=== PATIENT | female | born 1980 | race Caucasian/White ===

== ENCOUNTER 2017-07-18 11:45 | Emergency (ER) | payer BC ==
[2017-07-18 11:50] VITALS: TEMP 98.5; BMI 31.1
--- NOTE | 2017-07-18 11:55 | PDOC ---
History of Present Illness - General Stated Complaint: TINGLING TO LEFT FACE, LEFT SIDE Time Seen by Provider: 07/18/17 11:55 - History of Present Illness Initial Comments: 07/18/17 11:55 Ms. Jarad Adams is a 36 yo female w/ pmh of Guillan [place] (resolved), Asthma , Nephrolithiasis, left pelvic pain with suspected hernia, and hyperthyroidism who presents for evaluation of left sided facial tingling and blue discoloration of her fingers bilaterally since 09 this morning. She called her PCP (Dr. Davies) and was told to present for evaluation. The patient denies chest pain, shortness of breath, headache and dizziness. Denies fever, chills, nausea, vomit, diarrhea and constipation. Denies dysuria, frequency, urgency and hematuria. Allergies: Nitrofurantoin Past History - Past Medical History Allergies/Adverse Reactions: Allergies Allergy/AdvReac Type Severity Reaction Status Date / Time nitrofurantoin AdvReac arm pain Verified 07/18/17 11:47 [From Macrobid] nitrofurantoin AdvReac arm pain Verified 07/18/17 11:47 macrocrystalline [From Macrobid] Home Medications: Ambulatory Orders Albuterol Sulfate Inhaler - [Ventolin Hfa Inhaler -] 1 - 2 inh PO QID PRN Cetirizine HCl/Pseudoephedrine [Zyrtec-D Tablet] 1 each PO DAILY 07/18/17 Asthma: Yes COPD: No Disorders: Yes (frequent UTI) Kidney Stones: Yes Thyroid Disease: Yes - Immunization History Immunization Up to Date: Yes - Suicide/Smoking/Psychosocial Hx Smoking History: Never smoked Have you smoked in the past 12 months: No Hx Alcohol Use: (occasional) Drug/Substance Use Hx: No Substance Use Type: None Review of Systems - Review of Systems Comments:: 07/18/17 12:02 GENERAL/CONSTITUTIONAL: No fever or chills. No weakness. HEAD, EYES, EARS, NOSE AND THROAT: No change in vision. No ear pain or discharge. No sore throat. CARDIOVASCULAR: No chest pain or shortness of breath RESPIRATORY: No cough, wheezing, or hemoptysis. GASTROINTESTINAL: No nausea, vomiting, diarrhea or constipation. GENITOURINARY: No dysuria, frequency, or change in urination. MUSCULOSKELETAL: No joint or muscle swelling or pain. No neck or back pain. SKIN: No rash NEUROLOGIC: No headache, vertigo, loss of consciousness, or change in strength/ sensation. ENDOCRINE: No increased thirst. No abnormal weight change HEMATOLOGIC/LYMPHATIC: No anemia, easy bleeding, or history of blood clots. ALLERGIC/IMMUNOLOGIC: No hives or skin allergy. *Physical Exam - Vital Signs Last Vital Signs Temp Pulse Resp BP Pulse Ox 98.5 F 87 18 138/101 100 07/18/17 11:45 07/18/17 11:45 07/18/17 11:45 07/18/17 11:45 07/18/17 11:45 - Physical Exam Comments: 07/18/17 12:02 GENERAL: Awake, alert, and fully oriented, in no acute distress HEAD: No signs of trauma, normocephalic, atraumatic EYES: PERRLA, EOMI, sclera anicteric, conjunctiva clear ENT: Auricles normal inspection, hearing grossly normal, nares patent, oropharynx clear without exudates. Moist mucosa NECK: Normal ROM, supple, no lymphadenopathy, JVD, or masses LUNGS: No distress, speaks full sentences, clear to auscultation bilaterally HEART: Regular rate and rhythm, normal S1 and S2, no murmurs, rubs or gallops, peripheral pulses normal and equal bilaterally. ABDOMEN: +LLQ TTP at suspected hernia site (chronic). Soft, nontender, normoactive bowel sounds. No guarding, no rebound. No masses EXTREMITIES: +Fingertips blue and cold bilaterally. Normal range of motion, no edema. No clubbing or cyanosis. NEUROLOGICAL: Cranial nerves II through XII grossly intact. Normal speech, normal gait, no focal sensorimotor deficits SKIN: Warm, Dry, normal turgor, no rashes or lesions noted. ED Treatment Course - LABORATORY CBC & Chemistry Diagram: 07/18/17 12:00 07/18/17 12:00 Medical Decision Making - Medical Decision Making 07/18/17 14:07 Ms. Jarad Adams is a 36 yo female w/ presents for evaluation on advice of PCP after onset of discolation of fingertips with facial tingling as described. Stroke protocol started due to concerning history. Head CT negative for acute process, labs grossly wnl as below. NIHSS completely negative. No concern for CVA or other acute process at this time. Discussed patient with PCP who would like ESR added and patient sent outpatient to Dr. Hilaria Cruz at [facility] for rheumatological workup. Discussed this with patient who verbalized agreement and understanding and will comply. Discharging to home. Laboratory Results - last 24 hr 07/18/17 07/18/17 07/18/17 12:00 12:00 12:00 WBC 12.8 H D RBC 4.77 Hgb 14.2 Hct 41.4 MCV 86.9 MCH 29.8 MCHC 34.3 RDW 13.8 Plt Count 225 MPV 10.5 Neutrophils % 80.9 Lymphocytes % 14.9 Monocytes % 3.7 L Eosinophils % 0.3 Basophils % 0.2 PT with INR 12.5 INR 1.12 Sodium 138 Potassium 3.8 Chloride 100 Carbon Dioxide 31 H Anion Gap 7 L BUN 11 D Creatinine < 0.8 D Creat Clearance w eGFR > 60 Random Glucose 103 Calcium 9.2 Total Bilirubin 0.6 AST 22 D ALT 17 Alkaline Phosphatase 63 Creatine Kinase Troponin I Total Protein 7.3 Albumin 4.2 Triglycerides 156 Cholesterol 176 Total LDL Cholesterol 90 HDL Cholesterol 55 Urine Color Urine Appearance Urine pH Ur Specific [place] Urine Protein Urine Glucose (UA) Urine Ketones Urine Blood Urine Nitrite Urine Bilirubin Urine Urobilinogen Ur Leukocyte Esterase Urine HCG, Qual 07/18/17 07/18/17 07/18/17 12:00 12:05 12:06 WBC RBC Hgb Hct MCV MCH MCHC RDW Plt Count MPV Neutrophils % Lymphocytes % Monocytes % Eosinophils % Basophils % PT with INR INR Sodium Potassium Chloride Carbon Dioxide Anion Gap BUN Creatinine Creat Clearance w eGFR Random Glucose Calcium Total Bilirubin AST ALT Alkaline Phosphatase Creatine Kinase Troponin I < 0.03 Total Protein Albumin Triglycerides Cholesterol Total LDL Cholesterol HDL Cholesterol Urine Color [place] Urine Appearance Clear Urine pH 6.5 Ur Specific [place] 1.010 Urine Protein Negative Urine Glucose (UA) Negative Urine Ketones Negative Urine Blood Negative Urine Nitrite Negative Urine Bilirubin Negative Urine Urobilinogen 0.2 Ur Leukocyte Esterase Negative Urine HCG, Qual Negative 07/18/17 12:10 WBC RBC Hgb Hct MCV MCH MCHC RDW Plt Count MPV Neutrophils % Lymphocytes % Monocytes % Eosinophils % Basophils % PT with INR INR Sodium Potassium Chloride Carbon Dioxide Anion Gap BUN Creatinine Creat Clearance w eGFR Random Glucose Calcium Total Bilirubin AST ALT Alkaline Phosphatase Creatine Kinase 64 Troponin I Total Protein Albumin Triglycerides Cholesterol Total LDL Cholesterol HDL Cholesterol Urine Color Urine Appearance Urine pH Ur Specific [place] Urine Protein Urine Glucose (UA) Urine Ketones Urine Blood Urine Nitrite Urine Bilirubin Urine Urobilinogen Ur Leukocyte Esterase Urine HCG, Qual *DC/Admit/Observation/Transfer Diagnosis at time of Disposition: Discoloration of skin of finger - Discharge Dispostion Disposition: HOME Condition at time of disposition: Stable - Referrals Referrals: Aaron Davies MD [Primary Care Provider] - Hilaria Merida [Non Staff, Medical] - - Patient Instructions Additional Instructions: Please follow-up with rheumatology and primary care provider as discussed for further evaluation. Return to ER if any pain, fever, chills, altered mental status, or other concerning symptoms. - Post Discharge Activity
[2017-07-18] MEDS ORDERED: SODIUM CHLORIDE 1,000 ML IV SCH (12:15)
[2017-07-18 12:19] LABS: BASO % 0.2 % (0-2.0); EOS % 0.3 % (0-4.5); HEMATOCRIT 41.4 % (32.4-45.2); HEMOGLOBIN 14.2 GM/dl (10.7-15.3); LYMPH % 14.9 % (8-40); MCH 29.8 pg (25.7-33.7); MCHC 34.3 g/dl (32.0-36.0); MEAN CELL VOLUME 86.9 fl (80-96); MEAN PLT VOLUME 10.5 fl (7.5-11.1); MONO % 3.7 % (3.8-10.2); NEUT % 80.9 % (42.8-82.8); PLATELET COUNT 225 K/MM3 (134-434); RBC 4.77 M/mm3 (3.60-5.2); RDW 13.8 % (11.6-15.6); WHITE BLOOD COUNT 12.8 K/mm3 (4.0-10.8)
[2017-07-18 12:38] LABS: PH,URINE 6.5 (4.5-8); URINE APPEARANCE Clear; URINE BILIRUBIN Negative (NEGATIVE); URINE COLOR AMBER; URINE GLUCOSE (UA) Negative (NEGATIVE); URINE KETONE Negative (NEGATIVE); URINE LEUK ESTERASE Negative (NEGATIVE); URINE NITRITE Negative (NEGATIVE); URINE PROTEIN Negative (NEGATIVE); URINE UROBILINOGEN 0.2 (0.2-1.0)
[2017-07-18 12:40] LABS: INR 1.12 (0.82-1.09); PROTHROMBIN TIME (PATIENT) 12.5 SEC (10.2-13.0)
[2017-07-18 12:47] LABS: ALBUMIN 4.2 g/dl (3.5-5.0); ALK PHOS 63 U/L (32-92); ANION GAP 7 (8-16); BILIRUBIN,TOTAL 0.6 mg/dl (0.2-1.0); BLOOD UREA NITROGEN 11 mg/dl (7-18); CALCIUM 9.2 mg/dl (8.4-10.2); CHLORIDE 100 mmol/L (98-107); CHOLESTEROL 176 mg/dl; CO2 31 mmol/L (22-28); GLUCOSE,RANDOM 103 mg/dl (74-106); HDL CHOLESTEROL 55 mg/dl (29-89); POTASSIUM 3.8 mmol/L (3.5-5.1); SGOT/AST 22 U/L (10-42); SGPT/ALT 17 U/L (10-40); SODIUM 138 mmol/L (136-145); TOT PROT 7.3 g/dl (6.4-8.3); TRIGLYCERIDES 156 mg/dl (35-160)
[2017-07-18 12:48] LABS: CREATININE < 0.8 mg/dl (0.6-1.3)
--- NOTE | 2017-07-18 13:17 | PDOC ---
Attending Attestation - Resident Resident Name: Francisco Javier Avalos - ED Attending Attestation I have performed the following: I have examined & evaluated the patient, The case was reviewed & discussed with the resident, I agree w/resident's findings & plan, Exceptions are as noted - HPI HPI: 07/18/17 13:12 Ms Abraham is a 36 yo F h/o Guillan [place], h/o Asthma, Nephrolithiasis and hyperthyroidism who presents for evaluation of left sided facial tingling and discoloration of both hands Pt states that in the past she has noted discoloration of her fingers tips bilaterally Today it involved her entire hand/palm No pain Pt states she was not in a cold room This has largely resolved since arrival to the ER She also reports: Left cheek numbness No weakness, no difficulty smiling Sensation in tact No motor deficit The patient denies chest pain, shortness of breath, headache and dizziness. Denies fever, chills, nausea, vomit, diarrhea and constipation. Denies dysuria, frequency, urgency and hematuria. - Physicial Exam PE: 07/18/17 13:14 On my examination: Awake and alert Oriented x 3 RRR CTA hands are not discolored or blue bilaterally Pt states sensation is in tact on cheek Motor 5/5 in all extremities Sensation in tact in all extremities - Medical Decision Making 07/18/17 13:16 36 yo F presenting to the ER with a complaint of left cheek numbness and hand discoloration Hand discoloration has resolved Pt had a photo, palms appeared bluish Given prior history of this, consistent with Raynauds Left cheek numbness CT ordered CT negative EKG ordered 07/18/17 13:18 EKG: SR, rate of 62 bpm, axis nml, intervals nml, no st elevations or depressions, t wave upright Laboratory Tests 07/18/17 07/18/17 07/18/17 12:00 12:00 12:00 WBC 12.8 H D Hgb 14.2 Hct 41.4 Plt Count 225 INR 1.12 Sodium 138 Potassium 3.8 Chloride 100 Carbon Dioxide 31 H BUN 11 D Creatinine < 0.8 D Random Glucose 103 Creatine Kinase Troponin I Urine Blood Urine Nitrite Ur Leukocyte Esterase Urine HCG, Qual 07/18/17 07/18/17 07/18/17 12:00 12:05 12:06 WBC Hgb Hct Plt Count INR Sodium Potassium Chloride Carbon Dioxide BUN Creatinine Random Glucose Creatine Kinase Troponin I < 0.03 Urine Blood Negative Urine Nitrite Negative Ur Leukocyte Esterase Negative Urine HCG, Qual Negative 07/18/17 12:10 WBC Hgb Hct Plt Count INR Sodium Potassium Chloride Carbon Dioxide BUN Creatinine Random Glucose Creatine Kinase 64 Troponin I Urine Blood Urine Nitrite Ur Leukocyte Esterase Urine HCG, Qual Case reviewed with PT PMD Pt asked to follow up as an outpatient 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
[2017-07-18 14:09] LABS: ERYTHROCYTE SEDIMENTATION RATE 11 mm/hr (0-20)
[2017-07-18 14:29] VITALS: BP 128/77; PULSE 76
--- NOTE | 2017-07-19 08:23 | EKG ---
Test Reason : Blood Pressure : / mmHG Vent. Rate : 062 BPM Atrial Rate : 062 BPM P-R Int : 138 ms QRS Dur : 088 ms QT Int : 398 ms P-R-T Axes : 045 047 031 degrees QTc Int : 403 ms NORMAL SINUS RHYTHM NORMAL ECG WHEN COMPARED WITH ECG OF 07-MAY-2010 16:43, NO SIGNIFICANT CHANGE WAS FOUND Confirmed by MAURY VILLARREAL MD ([id number]) on 07/19/2017 8:23:05 AM Referred By: NATALIA HOWARD Confirmed By:MAURY VILLARREAL MD
== END 2017-07-18 14:05 | disposition home or self-care (01) ==
LOC: FER 11:45
DX: J45.909 Unspecified asthma, uncomplicated (principal); E07.9 Disorder of thyroid, unspecified; Z87.442 Personal history of urinary calculi
CPT/HCPCS: 36415; 70450-TC; 80053; 81003; 82465; 82550; 83718; 83721; 84478; 84484; 84703; 85025; 85610; 85651; 86850; 86900; 86901; 93005; 99285-25; J7030

== ENCOUNTER 2017-07-29 12:53 | Day surgery (SDC) | payer BC ==
--- NOTE | 2017-07-29 15:04 | PDOC ---
Rapid Medical Evaluation Chief Complaint: Pain Time Seen by Provider: 07/29/17 14:59 Medical Evaluation: Allergies Allergy/AdvReac Type Severity Reaction Status Date / Time nitrofurantoin AdvReac arm pain Verified 07/29/17 12:54 [From Macrobid] nitrofurantoin AdvReac arm pain Verified 07/29/17 12:54 macrocrystalline [From Macrobid] Vital Signs Temp Pulse Resp BP Pulse Ox 98.7 F 73 18 129/83 100 07/29/17 12:55 07/29/17 12:55 07/29/17 12:55 07/29/17 12:55 07/29/17 12:55 07/29/17 14:59 Pt. presents for L sided pelvic pain. Seen by Dr. Hager and has large ovarian cyst. Plans to go to OR. Hx of partial hysterectomy. Exam: pt. appears uncomfortable. ambulatory, AAOx3. TTP LLQ Orders: Labs, urine, EKG, CXR, Transvaginal US Pt. to proceed to ED for further evaluation Discharge Disposition - Discharge Dispostion Last Admission D/C Date: 05/12/10 - Referrals Referrals: Aaron Davies MD [Primary Care Provider] - - Patient Instructions - Post Discharge Activity
[2017-07-29] MEDS ORDERED: ACETAMINOPHEN 1000 MG/100 ML VIAL (NON FORMULARY) IVPB ONE (16:15)
[2017-07-29 16:34] LABS: BASO % 0.3 % (0-2.0); EOS % 0.7 % (0-4.5); HEMATOCRIT 41.1 % (32.4-45.2); HEMOGLOBIN 13.3 GM/dL (10.7-15.3); MCH 28.5 pg (25.7-33.7); MCHC 32.4 g/dl (32.0-36.0); MEAN PLT VOLUME 10.8 fl (7.5-11.1); MONO % 3.8 % (3.8-10.2); NEUT % 75.2 % (42.8-82.8); PLATELET COUNT 232 K/MM3 (134-434); RBC 4.67 M/mm3 (3.60-5.2); RDW 14.5 % (11.6-15.6); WHITE BLOOD COUNT 11.9 K/mm3 (4.0-10.0)
[2017-07-29 16:45] LABS: INR 1.09 (0.82-1.09); PROTHROMBIN TIME (PATIENT) 12.3 SEC (9.7-13.0)
[2017-07-29] MEDS ORDERED: ACETAMINOPHEN INJECTION 100 ML IVPB ONE ×3 (16:48→19:57)
[2017-07-29 16:57] LABS: URINE APPEARANCE CLEAR; URINE BILIRUBIN NEGATIVE (<2.0 mg/dL); URINE COLOR LTYELLOW; URINE GLUCOSE (UA) NEGATIVE (NEGATIVE); URINE KETONE TRACE (NEGATIVE); URINE LEUK ESTERASE NEGATIVE (NEGATIVE); URINE NITRITE NEGATIVE (NEGATIVE); URINE PROTEIN NEGATIVE (NEGATIVE); URINE UROBILINOGEN NEGATIVE mg/dL (0.2-1.0)
[2017-07-29 17:02] LABS: HCG,QUALITATIVE URINE NEGATIVE
[2017-07-29] MEDS ORDERED: KETOROLAC TROMETHAMINE 30 MG/1 ML VIAL IVPUSH ONE (17:03)
--- NOTE | 2017-07-29 17:09 | PDOC ---
History of Present Illness - General Chief Complaint: Pain Stated Complaint: OVARIAN CYST (PCP SENT) Time Seen by Provider: 07/29/17 14:59 History Source: Patient - History of Present Illness Timing/Duration: reports: constant Quality: reports: severe Abdominal Pain Onset Location: reports: suprapubic Past History - Past Medical History Allergies/Adverse Reactions: Allergies Allergy/AdvReac Type Severity Reaction Status Date / Time nitrofurantoin AdvReac arm pain Verified 07/29/17 12:54 [From Macrobid] nitrofurantoin AdvReac arm pain Verified 07/29/17 12:54 macrocrystalline [From Macrobid] Home Medications: Ambulatory Orders Albuterol Sulfate Inhaler - [Ventolin Hfa Inhaler -] 1 - 2 inh PO QID PRN Cetirizine HCl/Pseudoephedrine [Zyrtec-D Tablet] 1 each PO DAILY 07/18/17 Ciprofloxacin HCl [Cipro] 500 mg PO BID 07/29/17 Cyclobenzaprine HCl 5 mg PO HS 07/29/17 Diclofenac Sodium [Voltaren -] 50 mg PO DAILY 07/29/17 Asthma: Yes COPD: No Disorders: Yes (frequent UTI) Kidney Stones: Yes Thyroid Disease: Yes - Immunization History Immunization Up to Date: Yes - Suicide/Smoking/Psychosocial Hx Smoking History: Never smoked Have you smoked in the past 12 months: No Information on smoking cessation initiated: No Hx Alcohol Use: No (occasional) Drug/Substance Use Hx: No Substance Use Type: None Review of Systems - Review of Systems Constitutional: No: Chills, Fever ABD/GI: Yes: Nausea, Abdominal cramping. No: Vomiting : No: Burning, Dysuria, Discharge, Flank Pain, Hematuria *Physical Exam - Vital Signs Last Vital Signs Temp Pulse Resp BP Pulse Ox 98.7 F 73 18 129/83 100 07/29/17 12:55 07/29/17 12:55 07/29/17 12:55 07/29/17 12:55 07/29/17 12:55 - Physical Exam General Appearance: Yes: Appropriately Dressed, Mild Distress HEENT: positive: Normal Voice Respiratory/Chest: negative: Respiratory Distress Gastrointestinal/Abdominal: positive: Tender (to L suprapubic area), Soft Integumentary: positive: Dry, Warm Neurologic: positive: Fully Oriented, Alert, Normal Mood/Affect Moderate Sedation - Procedure Monitoring Vital Signs: Vital Signs Temp Pulse Resp BP Pulse Ox 98.7 F 73 18 129/83 100 07/29/17 12:55 07/29/17 12:55 07/29/17 12:55 07/29/17 12:55 07/29/17 12:55 ED Treatment Course - LABORATORY CBC & Chemistry Diagram: 07/29/17 15:42 07/29/17 15:42 - ADDITIONAL ORDERS Additional order review: Laboratory Results 07/29/17 07/29/17 15:47 15:42 PT with INR 12.30 INR 1.09 Urine HCG, Qual Negative 07/29/17 15:42 RBC 4.67 MCV 88.0 MCHC 32.4 RDW 14.5 MPV 10.8 Neutrophils % 75.2 Lymphocytes % 20.0 D Monocytes % 3.8 Eosinophils % 0.7 Basophils % 0.3 - Medications Given in the ED: ED Medications Discontinued Medications Generic Name Dose Route Start Last Admin Trade Name Jimmy PRN Reason Stop Dose Admin Acetaminophen 1,000 mg 07/29/17 16:15 07/29/17 16:54 Ofirmev Injection - IVPB 07/29/17 16:16 1,000 mg ONCE ONE Administration Medical Decision Making - Medical Decision Making 07/29/17 17:04 36 year-old female, , status post hysterectomy 7 years ago secondary to menorrhagia, diagnosed with large L complex ovarian cyst on ultrasound and MRI last week after presenting to her [facility], Dr. Hager, with severe left pelvic. Diego Pugh sent her to ED for admission for surgery. + nausea, no vomiting , fever, chills, dysuria or vaginal discharge. See exam Severe pelvic pain 2/2 large complex ovarian cyst on US/MRI last week, no torsion seen per pt, sent in for surgery by [facility] Stable in ED w/ ttp to L side of suprapubic area -pain control -preop lab -US -branch operations coordinator c/s -admit 07/29/17 17:[address] Hager and patient admitted to [facility] *DC/Admit/Observation/Transfer Diagnosis at time of Disposition: Ovarian cyst Qualifiers: Laterality: left Qualified Code(s): N83.202 - Unspecified ovarian cyst, left side - Discharge Dispostion Condition at time of disposition: Good Decision to Admit order: Yes - Referrals Referrals: Aaron Davies MD [Primary Care Provider] - - Patient Instructions - Post Discharge Activity
--- NOTE | 2017-07-29 17:18 | HP ---
Satellite PMH - Chief Complaint Chief Complaint: Pelvic pain. Ovarian cyst History of Present Illness: 36 yo with Hx of hysterectomy with ovarian cyst and pelvic pain for laparoscopic cystectomy possible oophorectomy History Source: Patient - Past Medical History Allergies/Adverse Reactions: Allergies Allergy/AdvReac Type Severity Reaction Status Date / Time nitrofurantoin AdvReac arm pain Verified 07/29/17 12:54 [From Macrobid] nitrofurantoin AdvReac arm pain Verified 07/29/17 12:54 macrocrystalline [From Macrobid] - Current Medications Current Medications: Home Medications Medication Instructions Recorded Albuterol Sulfate Inhaler - 1 - 2 inh PO QID PRN 01/01/16 [Ventolin Hfa Inhaler -] Cetirizine HCl/Pseudoephedrine 1 each PO DAILY 07/18/17 [Zyrtec-D Tablet] Ciprofloxacin HCl [Cipro] 500 mg PO BID 07/29/17 Cyclobenzaprine HCl 5 mg PO HS 07/29/17 Diclofenac Sodium [Voltaren -] 50 mg PO DAILY 07/29/17 Satellite Physical Exam - Physical Examination Vital Signs: Vital Signs Period Temp Pulse Resp BP Sys/Bunn Pulse Ox Last 24 Hr 98.7 F 73 18 129/83 100 General Appearance: Well Nourished, Well Developed ENT: Clear Lung: Clear to auscultation Heart: Regular rate & rhythm Breasts: Soft, Other (lower abd ternderness) Extremities: No edema Pelvic Exam: Other [place] (tenderness) Neurological: Intact, Alert, Oriented Satellite Impression/Plan - Impression/Plan Impression: Pelvic pain. Ovarian cyst Operative Procedure: Laparoscopic ovarian cystectomy possible oophorectomy Date to be Performed: 07/29/17
[2017-07-29] MEDS ORDERED: IBUPROFEN 800 MG/8 ML IJ IVPB PRN ×2 (17:19→19:54)
[2017-07-29] MEDS ORDERED: LACTATED RINGERS SOLUTION 1,000 ML IV SCH ×2 (17:30→20:00)
[2017-07-29] MEDS ORDERED: IBUPROFEN 800 MG/8 ML IJ IVPB ONE (17:41)
[2017-07-29] MEDS ORDERED: KETOROLAC TROMETHAMINE 30 MG/1 ML VIAL ONE (17:41)
[2017-07-29 17:43] LABS: ALBUMIN 3.7 g/dl (3.4-5.0); ANION GAP 4 (8-16); BILIRUBIN,TOTAL 0.7 mg/dL (0.2-1.0); BLOOD UREA NITROGEN 13 mg/dL (7-18); CALCIUM 8.7 mg/dL (8.5-10.1); CHLORIDE 106 mmol/L (98-107); CO2 29 mmol/L (21-32); CREATININE 0.8 mg/dL (0.55-1.02); GLUCOSE,RANDOM 147 mg/dL (74-106); POTASSIUM 4.3 mmol/L (3.5-5.1); SGOT/AST 23 U/L (15-37); SODIUM 139 mmol/L (136-145); TOT PROT 7.4 g/dl (6.4-8.2)
[2017-07-29 17:52] LABS: ALK PHOS 77 U/L (45-117); SGPT/ALT 24 U/L (12-78)
[2017-07-29] MEDS ORDERED: ONDANSETRON 4 MG/2 ML VIAL IVPUSH PRN (19:53)
[2017-07-29] MEDS ORDERED: ceFAZolin SODIUM 1 GM VIAL IVPB ONE (20:30)
[2017-07-29 23:49] VITALS: BP 133/82; PULSE 84; TEMP 97.7; BMI 31.4
--- NOTE | 2017-07-30 00:04 | OP ---
Operative Note - Note: Operative Date: 07/30/17 Pre-Operative Diagnosis: Pelvic pain. ovarian cyst left Operation: Laparoscopic Left salpingoophorectomy Findings: Left ovarian corpus leuteal cyst Post-Operative Diagnosis: Same as Pre-op Surgeon: Freda Hammond Anesthesia: General Estimated Blood Loss (mls): 10 Operative Report Dictated: Yes
--- NOTE | 2017-07-30 10:18 | EKG ---
Test Reason : Blood Pressure : / mmHG Vent. Rate : 063 BPM Atrial Rate : 063 BPM P-R Int : 130 ms QRS Dur : 084 ms QT Int : 412 ms P-R-T Axes : 051 060 048 degrees QTc Int : 421 ms NORMAL SINUS RHYTHM NORMAL ECG WHEN COMPARED WITH ECG OF 18-JUL-2017 12:16, NO SIGNIFICANT CHANGE WAS FOUND Confirmed by MAURY VILLARREAL MD ([id number]) on 07/30/2017 10:17:49 AM Referred By: Confirmed By:MAURY VILLARREAL MD
--- NOTE | 2017-08-21 12:38 | OP ---
DATE OF OPERATION: 07/30/2017 PREOPERATIVE DIAGNOSIS: Severe abdominal pain and left ovarian salpingectomy and oophorectomy. POSTOPERATIVE DIAGNOSIS: Severe abdominal pain and left ovarian salpingectomy and oophorectomy. SURGEON: Freda Hammond MD ANESTHESIA: General. PROCEDURE: Patient was taken to the operating room, placed in dorsal lithotomy position, prepped and draped in the usual sterile fashion. A time-out was performed in accordance with hospital regulations. Valiente catheter was inserted into the bladder. Attention was then drawn to the umbilicus where a 5-mm umbilical incision was made. Veress needle was inserted into the cavity. Approximately 3-4 L of CO2 was insufflated in the cavity. Veress needle was then removed, and a 5-mm trocar was then placed without injury to the underlying viscera. Laparoscope and camera were attached. Visualization revealed a left ovarian cyst and tube. Two trocars were placed in the lower left under direct visualization. LigaSure was then placed, and infundibulopelvic ligament was identified, and cauterization and cutting of the ovary and the fallopian tube was done. Patient had had a hysterectomy. After ovary had been removed, the ovary was then removed from the abdominal cavity and submitted to Pathology. Corpus luteal cyst was seen on the ovary and some paratubal cysts were also seen. The CO2 was then removed from the abdomen. Incisions were then closed using 0 Vicryl on the fascia using Raj-Leonardo, and on the skin, 4-0 Biosyn in subcuticular fashion. Wounds washed and dressed. Patient tolerated the procedure well. Estimated blood loss was 10 mL. FREDA HAMMOND M.D. [id number]
== END 2017-07-30 00:30 | disposition home or self-care (01) ==
LOC: JER 12:53 → JASUSAT 17:45 → UNDOADMIN 22:50 → J4W 22:50 → UNDODISIN 07-30 00:30 → JASUSAT 07-30 00:30
PROVIDERS: ATTEND Obstetrics & Gynecology
PROC: 0UB64ZZ Excision of Left Fallopian Tube, Percutaneous Endoscopic Approach (ICD-10-PCS; 2017-07-29)
PROC: 0UB14ZZ Excision of Left Ovary, Percutaneous Endoscopic Approach (ICD-10-PCS; principal; 2017-07-29 20:30)
DX: N83.202 Unspecified ovarian cyst, left side (principal); R10.2 Pelvic and perineal pain
CPT/HCPCS: 36415; 71046-TC-FY; 76856-TC; 80053; 81003; 84703; 85025; 85610; 86850; 86900; 86901; 87086; 88305-TC; 93005; 93010; 94760; 99283-25; J0131

== ENCOUNTER 2017-08-12 13:58 | Emergency (ER) | payer BC ==
[2017-08-12 14:04] VITALS: BP 138/90; PULSE 78; TEMP 98.7; BMI 32.0
[2017-08-12] MEDS ORDERED: SODIUM CHLORIDE 500 ML IV ONE (14:50)
--- NOTE | 2017-08-12 16:05 | PDOC ---
History of Present Illness - General History Source: Patient Exam Limitations: No Limitations - History of Present Illness Initial Comments: 08/12/17 16:05 The patient is a 36-year-old, with a significant past medical history of hysterectomy due to menorrhagia, s/p laparoscopic left oophorectomy 08/01/17, who presents to the ED with swelling to her incision site. The patient states that she had her left ovary removed laparoscopically [address] Sy office. A few days post surgery the patient began to note swelling at the left lower quadrant incision site. She denies any blood or pus drainage. She visited Dr. Sy office today and had an US done that revealed fluid buildup in the area. The patient was sent to the [facility] for drainage. There was only a Emergency Spill Response Technician present at the clinic so the patient was sent down to the ED for further evaluation. On exam, the patient reports associated nausea , headache, and lightheadedness. The patient has been eating and drinking normally. She reports taking Motrin for the pain. Patient is experiencing abdominal pain only at the incision site. The patient denies any fever, chills, diarrhea. Denies any shortness of breath or chest pain. Denies any rashes. Allergies: nitrofurantoin, nitrofurantoin macrocrystalline Surgical History: hysterectomy (7 years ago) FIELD TECHNICIAN: Dr. Hammond PCP: Dr. Davies <Brenad Dawn - Last Filed: 08/12/17 16:05> <Jaylon Pascual - Last Filed: 08/12/17 16:32> <Dyana Aviles - Last Filed: 08/12/17 18:48> - General Chief Complaint: Edema Stated Complaint: BLOOD CLOT Time Seen by Provider: 08/12/17 14:22 Past History <Brenda Dawn - Last Filed: 08/12/17 16:05> - Past Medical History Anemia: No Asthma: Yes Cancer: No Cardiac Disorders: No CVA: No COPD: No CHF: No Dementia: No Diabetes: No GI Disorders: Yes (HIATAL HERNIA; ULCER) Disorders: No HTN: No Hypercholesterolemia: No Kidney Stones: Yes Liver Disease: No Seizures: No Thyroid Disease: Yes (HYPERACTIVE) - Surgical History Abdominal Surgery: No Appendectomy: No Cardiac Surgery: No Cholecystectomy: No Lung Surgery: No Neurologic Surgery: No Orthopedic Surgery: No - Immunization History Immunization Up to Date: Yes - Suicide/Smoking/Psychosocial Hx Smoking History: Never smoked Have you smoked in the past 12 months: No Hx Alcohol Use: No (occasional) Drug/Substance Use Hx: No Substance Use Type: None <Jaylon Pascual - Last Filed: 08/12/17 16:32> <Dyana Aviles - Last Filed: 08/12/17 18:48> - Past Medical History Allergies/Adverse Reactions: Allergies Allergy/AdvReac Type Severity Reaction Status Date / Time nitrofurantoin AdvReac arm pain Verified 07/29/17 12:54 [From Macrobid] nitrofurantoin AdvReac arm pain Verified 07/29/17 12:54 macrocrystalline [From Macrobid] Home Medications: Ambulatory Orders Albuterol Sulfate Inhaler - [Ventolin Hfa Inhaler -] 1 - 2 inh PO QID PRN Cetirizine HCl/Pseudoephedrine [Zyrtec-D Tablet] 1 each PO DAILY 07/18/17 Ciprofloxacin HCl [Cipro] 500 mg PO BID 07/29/17 Cyclobenzaprine HCl 5 mg PO HS 07/29/17 Diclofenac Sodium [Voltaren -] 50 mg PO DAILY 07/29/17 Ibuprofen [Motrin -] 600 mg PO QID #28 tablet 07/30/17 Review of Systems - Review of Systems Able to Perform ROS?: Yes <Brenda Dawn - Last Filed: 08/12/17 16:05> - Review of Systems Constitutional: No: Chills, Fever Respiratory: No: Cough, Shortness of Breath Cardiac (ROS): No: Chest Pain ABD/GI: Yes: See HPI Integumentary: Yes: See HPI All Other Systems: Reviewed and Negative <Jaylon Pascual - Last Filed: 08/12/17 16:32> *Physical Exam - Vital Signs Last Vital Signs Temp Pulse Resp BP Pulse Ox 98.7 F 78 18 138/90 99 08/12/17 14:00 08/12/17 14:00 08/12/17 14:00 08/12/17 14:00 08/12/17 14:00 - Physical Exam Comments: 08/12/17 16:06 GENERAL: The patient is awake, alert, and fully oriented, in no acute distress. HEAD: Normal with no signs of trauma. EYES: Pupils equal, round and reactive to light, extraocular movements intact, sclera anicteric, conjunctiva clear with no pallor. ENT: Ears normal, nares patent, oropharynx clear without exudates. Moist mucous membranes. NECK: Normal range of motion, supple without lymphadenopathy, JVD, or masses. LUNGS: Breath sounds equal, clear to auscultation bilaterally. No wheeze/ crackles. HEART: Regular rate and rhythm, normal S1 and S2 without murmur or rub. ABDOMEN:(+)Left lower quadrant: 3x4cm subcutaneous palpable tender cyst. Incision intact. No pus, no drainage. Soft/nondistended. BS wnl. No guarding or rebound. No hepatosplenomegaly. EXTREMITIES: Normal range of motion, no edema. No clubbing or cyanosis. No cords, erythema, or tenderness. NEUROLOGICAL: Cranial nerves II through XII grossly intact. Normal speech, normal gait. PSYCH: Normal mood, normal affect. SKIN: Warm, Dry, normal turgor. <Brenda Dawn - Last Filed: 08/12/17 16:05> - Vital Signs Last Vital Signs Temp Pulse Resp BP Pulse Ox 98.7 F 78 18 138/90 99 08/12/17 14:00 08/12/17 14:00 08/12/17 14:00 08/12/17 14:00 08/12/17 14:00 <Jaylon Pascual - Last Filed: 08/12/17 16:32> - Vital Signs Last Vital Signs Temp Pulse Resp BP Pulse Ox 98.7 F 78 18 138/90 99 08/12/17 14:00 08/12/17 14:00 08/12/17 14:00 08/12/17 14:00 08/12/17 14:00 <Dyana Aviles - Last Filed: 08/12/17 18:48> ED Treatment Course - LABORATORY CBC & Chemistry Diagram: 08/12/17 15:33 08/12/17 15:44 - Medications Given in the ED: ED Medications Discontinued Medications Generic Name Dose Route Start Last Admin Trade Name Freq PRN Reason Stop Dose Admin Sodium Chloride 500 mls @ 500 mls/hr 08/12/17 14:50 08/12/17 15:43 Normal Saline - IV 08/12/17 15:49 500 mls/hr ONCE ONE Administration <Brenda aDwn - Last Filed: 08/12/17 16:05> - LABORATORY CBC & Chemistry Diagram: 08/12/17 15:33 08/12/17 15:44 - RADIOLOGY Radiology Studies Ordered: Category Date Time Status ABDOMEN & PELVIS CT WITH CONTR [CT] Stat CT Scan 08/12/17 15:01 Ordered - Medications Given in the ED: ED Medications Discontinued Medications Generic Name Dose Route Start Last Admin Trade Name Freq PRN Reason Stop Dose Admin Sodium Chloride 500 mls @ 500 mls/hr 08/12/17 14:50 08/12/17 15:43 Normal Saline - IV 08/12/17 15:49 500 mls/hr ONCE ONE Administration <Jaylon Pascual - Last Filed: 08/12/17 16:32> - LABORATORY CBC & Chemistry Diagram: 08/12/17 15:33 08/12/17 15:44 - ADDITIONAL ORDERS Additional order review: Laboratory Results 08/12/17 08/12/17 08/12/17 15:44 15:33 15:33 PT with INR 11.80 INR 1.04 PTT (Actin FS) 24.8 L Sodium Cancelled Potassium Cancelled Chloride Cancelled Carbon Dioxide Cancelled Anion Gap Cancelled BUN Cancelled Creatinine Cancelled Creat Clearance w eGFR Cancelled Random Glucose Cancelled Calcium Cancelled Total Bilirubin Cancelled AST Cancelled ALT Cancelled Alkaline Phosphatase Cancelled Total Protein Cancelled Albumin Cancelled Lipase Cancelled Blood Type Cancelled Antibody Screen Cancelled 08/12/17 15:33 RBC 4.79 MCV 87.5 MCHC 33.1 RDW 14.1 MPV 10.4 Neutrophils % 76.4 Lymphocytes % 18.3 Monocytes % 4.4 Eosinophils % 0.5 Basophils % 0.4 - Medications Given in the ED: ED Medications Discontinued Medications Generic Name Dose Route Start Last Admin Trade Name Freq PRN Reason Stop Dose Admin Sodium Chloride 500 mls @ 500 mls/hr 08/12/17 14:50 08/12/17 15:43 Normal Saline - IV 08/12/17 15:49 500 mls/hr ONCE ONE Administration <Dyana Aviles - Last Filed: 08/12/17 18:48> Medical Decision Making - Medical Decision Making 08/12/17 16:02 A portion of this note was documented by scribe services under my direction. I have reviewed the details of the note, within reason, and agree with the documentation with the following case summary and management plan written by me. Healthy 36-year-old female with history of hysterectomy, status post laparoscopic left ovarian cystectomy presents now sent from Dr. Hager office for drainage of a fluid collection near one of the port sites. Patient has had progressive increase in size and discomfort of a palpable collection under her skin under the left lower quadrant incision, no redness or pus or bleeding, no fevers or chills. Seen by Dr. Hager today, referred to wound clinic for drainage but they referred her to the emergency department. No GI complaints of vomiting or diarrhea, no GRE[employer] OR GROUNDS SUPERINTENDENT complaints. Afebrile. 3 x 4 cm subcutaneous and mobile but tender collection under the left pelvic laparoscopic incision site, which is otherwise intact and not draining fluid or pus or blood. No other abdominal tenderness. No guarding or rebound. Likely surgical site seroma, rule out abscess. Rule out hernia or intra- abdominal pathology. Discussed with Dr. Hager, who agrees with plan for labs , CAT scan of the abdomen and pelvis. If CAT scan shows only subcutaneous changes, plan is for Dr. Hager or wound clinic to drain the collection, which at this time does not appear infected. 08/12/17 16:27 wbc 11.2. Chem hemolyzed, but pt difficult blood draw. Cr 0.8 on 07/29/17, no risk factors for renal disease, so will proceed with IV contrast per current guidelines. <Jaylon Pascual - Last Filed: 08/12/17 16:32> *DC/Admit/Observation/Transfer - Attestations Scribe Attestion: 08/12/17 16:06 Documentation prepared by Brenda Dawn, acting as medical officer psychiatry for Jaylon Pascual MD. <Brenda Dawn - Last Filed: 08/12/17 16:05> <Jaylon Pascual - Last Filed: 08/12/17 16:32> <Dyana Aviles - Last Filed: 08/12/17 18:48> Diagnosis at time of Disposition: Pain at surgical site - Discharge Dispostion Disposition: HOME Condition at time of disposition: Stable - Referrals Referrals: Aaron Davies MD [Primary Care Provider] - Freda Hammond MD [Staff Physician] - Vini Pina MD [Staff Physician] - - Patient Instructions Printed Discharge Instructions: DI for Groin Hernia, DI for Hernia Repair Additional Instructions: You have a left sided hernia within the left anterior abdominal wall . No bowel bowel loops are contained within the hernia You now need to be seen by a surgeon and Dr Dolan will make arrangements Please contact Dr Dolan in the morning ,she will be in her office after 9am. - Post Discharge Activity
[2017-08-12 16:06] LABS: BASO % 0.4 % (0-2.0); EOS % 0.5 % (0-4.5); HEMOGLOBIN 13.9 GM/dL (10.7-15.3); LYMPH % 18.3 % (8-40); MCHC 33.1 g/dl (32.0-36.0); MEAN CELL VOLUME 87.5 fl (80-96); MEAN PLT VOLUME 10.4 fl (7.5-11.1); MONO % 4.4 % (3.8-10.2); NEUT % 76.4 % (42.8-82.8); PLATELET COUNT 266 K/MM3 (134-434); RBC 4.79 M/mm3 (3.60-5.2); RDW 14.1 % (11.6-15.6); WHITE BLOOD COUNT 11.2 K/mm3 (4.0-10.0)
[2017-08-12 16:21] LABS: INR 1.04 (0.82-1.09); PROTHROMBIN TIME (PATIENT) 11.8 SEC (9.7-13.0)
[2017-08-12 16:23] LABS: ACTIVATED PTT 24.8 SECONDS (26.9-34.4)
--- NOTE | 2017-08-12 18:49 | PDOC ---
*Physical Exam - Vital Signs Last Vital Signs Temp Pulse Resp BP Pulse Ox 98.7 F 78 18 138/90 99 08/12/17 14:00 08/12/17 14:00 08/12/17 14:00 08/12/17 14:00 08/12/17 14:00 ED Treatment Course - LABORATORY CBC & Chemistry Diagram: 08/12/17 15:33 08/12/17 15:44 - ADDITIONAL ORDERS Additional order review: Laboratory Results 08/12/17 08/12/17 08/12/17 15:44 15:33 15:33 PT with INR 11.80 INR 1.04 PTT (Actin FS) 24.8 L Sodium Cancelled Potassium Cancelled Chloride Cancelled Carbon Dioxide Cancelled Anion Gap Cancelled BUN Cancelled Creatinine Cancelled Creat Clearance w eGFR Cancelled Random Glucose Cancelled Calcium Cancelled Total Bilirubin Cancelled AST Cancelled ALT Cancelled Alkaline Phosphatase Cancelled Total Protein Cancelled Albumin Cancelled Lipase Cancelled Blood Type Cancelled Antibody Screen Cancelled 08/12/17 15:33 RBC 4.79 MCV 87.5 MCHC 33.1 RDW 14.1 MPV 10.4 Neutrophils % 76.4 Lymphocytes % 18.3 Monocytes % 4.4 Eosinophils % 0.5 Basophils % 0.4 - Medications Given in the ED: ED Medications Discontinued Medications Generic Name Dose Route Start Last Admin Trade Name Juan Joseq PRN Reason Stop Dose Admin Sodium Chloride 500 mls @ 500 mls/hr 08/12/17 14:50 08/12/17 15:43 Normal Saline - IV 08/12/17 15:49 500 mls/hr ONCE ONE Administration Medical Decision Making - Medical Decision Making 08/12/17 18:48 I discussed the CAT scan findings with Dr. Hammond. There is a fat- containing left-sided hernia. There are no bowel loops contained within the hernia. Dr. Hammond will make arrangements for the patient to be seen by his surgeon. The patient is to follow-up with Dr. Hammond first thing in the morning. *DC/Admit/Observation/Transfer Diagnosis at time of Disposition: Pain at surgical site - Discharge Dispostion Disposition: HOME Condition at time of disposition: Stable - Referrals Referrals: Vini Pina MD [Staff Physician] - Freda Hammond MD [Staff Physician] - Aaron Davies MD [Primary Care Provider] - - Patient Instructions Printed Discharge Instructions: DI for Groin Hernia, DI for Hernia Repair Additional Instructions: You have a left sided hernia within the left anterior abdominal wall . No bowel bowel loops are contained within the hernia You now need to be seen by a surgeon and Dr Dolan will make arrangements Please contact Dr Dolan in the morning ,she will be in her office after 9am. - Post Discharge Activity
== END 2017-08-12 19:00 | disposition home or self-care (01) ==
LOC: JER 13:58
PROC: 3E0337Z Introduction of Electrolytic and Water Balance Substance into Peripheral Vein, Percutaneous Approach (ICD-10-PCS; principal; 2017-08-12)
DX: K43.2 Incisional hernia without obstruction or gangrene (principal); Z90.721 Acquired absence of ovaries, unilateral
CPT/HCPCS: 36415; 74177-TC; 85025; 85610; 85730; 99282-25

== ENCOUNTER 2017-09-02 10:00 | Day surgery (SDC) | payer BC ==
[2017-09-01 12:02] VITALS: BMI 32.0
[~2017-09-02 10:00] MED LIST: BUPIVACAINE HCL/PF (5 MG/ML) 30 ML VIAL IJ ONE
[2017-09-02] MEDS ORDERED: fentaNYL CITRATE 250 MCG/5 ML VIAL ONE (11:45)
[2017-09-02] MEDS ORDERED: ROCURONIUM BROMIDE 50 MG/5 ML VIAL ONE (11:46)
[2017-09-02] MEDS ORDERED: DEXAMETHASONE SOD PHOSPHATE 4 MG/1 ML VIAL ONE (11:46)
[2017-09-02] MEDS ORDERED: MIDAZOLAM HCL 2 MG/2 ML SINGLE DOSE VIAL ONE ×2 (11:46→12:37)
[2017-09-02] MEDS ORDERED: ROPIVACAINE HCL 0.5% 30ML VIAL ONE (12:38)
[2017-09-02] MEDS ORDERED: ceFAZolin SODIUM 1 GM VIAL ONE (13:21)
[2017-09-02] MEDS ORDERED: ceFAZolin SODIUM 1 GM VIAL IVPB ONE (13:22)
[2017-09-02] MEDS ORDERED: NEOSTIGMINE METHYLSULFATE 0.5 MG/ML - 10 ML MDV ONE (13:52)
[2017-09-02] MEDS ORDERED: BUPIVACAINE HCL/PF (5 MG/ML) 30 ML VIAL IJ ONE (14:46)
[2017-09-02] MEDS ORDERED: oxyCODONE HCL 5 MG TABLET PO PRN (15:14)
[2017-09-02] MEDS ORDERED: ONDANSETRON 4 MG/2 ML VIAL IVPUSH PRN (15:14)
[2017-09-02] MEDS ORDERED: LACTATED RINGERS SOLUTION 1,000 ML IV SCH (15:15)
[2017-09-02] MEDS ORDERED: ACETAMINOPHEN 1000 MG/100 ML VIAL (NON FORMULARY) IVPB ONE (15:15)
[2017-09-02] MEDS ORDERED: ACETAMINOPHEN INJECTION 100 ML IVPB ONE (15:23)
[2017-09-02] MEDS ORDERED: ONDANSETRON 4 MG/2 ML VIAL ONE ×2 (15:41→17:54)
--- NOTE | 2017-09-02 16:28 | OP ---
Operative Note - Note: Operative Date: 09/02/17 Pre-Operative Diagnosis: Incisional hernia Operation: Robotic assisted incisional hernia repair with mesh Post-Operative Diagnosis: Same as Pre-op Surgeon: Vini Pina Provider Service Representative: Bibiana Cardenas Anesthesiologist/WARP KNIT OPERATOR: Yesica Herman Anesthesia: General Specimens Removed: hernia sac Estimated Blood Loss (mls): 50 Drains, Volume Out (mls): 75 (sheehan) Fluid Volume Replaced (mls): 1,200 Operative Report Dictated: Yes
--- NOTE | 2017-09-02 16:32 | SURG ---
Surgery Motor Operator Note Motor Operator: Bibiana Cardenas PA-C Date of Service: 09/02/17 Diagnosis: incisional hernia Procedure: robotic assisted incisional hernia repair with [facility] I was present for the entirety of the operative procedure. For further detail, please refer to operative report. Visit type - Case Type Case Type: Scheduled - Emergency Emergency Visit: No - New patient This patient is new to me today: Yes Date on this admission: 09/02/17
--- NOTE | 2017-09-02 17:05 | OP ---
DATE OF OPERATION: 09/02/2017 SURGEON: Isaak Pina MD OSD CLERK: JESE Jimenez PREOPERATIVE DIAGNOSIS: Incarcerated left abdominal wall incisional hernia. POSTOPERATIVE DIAGNOSIS: Incarcerated left abdominal wall incisional hernia. PROCEDURE: 1. Diagnostic laparoscopy. 2. Robotic reduction of incarcerated hernia and omentum. 3. Omentectomy. 4. Robotic repair of incarcerated incisional hernia with Symbotex mesh, 9 cm. ESTIMATED BLOOD LOSS: 5 mL. DRAINS: None. ANESTHESIA: GET. SPECIMEN: Omentum. REASON FOR PROCEDURE: This is a 36-year-old female who underwent a laparoscopic oophorectomy in the past. She noted pain at the left lower abdominal wall incision. A workup was done, including a CT, which demonstrated a hernia at the site. Because of this, she was consented for robotic, possible open repair, of an incisional hernia with mesh. The risks and benefits of the procedure were explained. These included bleeding, infection, recurrence of hernia, injury to surrounding structures including the bowel, colon, liver, spleen, stomach, uterus, ureters, as well as other abdominal organs, RI, DVT, PE, mesh infection, were some of the complications. She understood and signed informed consent. DESCRIPTION OF PROCEDURE: The patient was placed supine on the operating room table. She underwent general endotracheal intubation. A Valiente catheter was inserted. The abdomen was prepped and draped in the usual sterile fashion. Timeout was performed. An 8-mm incision was made in the right upper quadrant. A Veress needle was inserted. Pneumoperitoneum was established. The Veress needle was then removed and an 8-mm robotic trocar placed. Immediately, the hernia was noted and it was noted to have incarcerated omentum. This was unable to be reduced manually. Two further 8-mm trocars were placed, one in the right lateral abdominal wall, one in the right lower quadrant in one of her prior incisions. The patient was placed in right side up position with Trendelenburg. The robot was brought over the field and docked. The dissection was performed at the console. The content of the hernia were noted to be incarcerated omentum. In order to reduce this, the fascia had to be extended. This was performed with the robotic octavio. The contents were then fully reduced and noted to be omentum. Part of the omentum was strangulated and this part of the omentum was transected. Hemostasis was noted. The fascia was then closed using a 0 V-Loc suture. A 9-cm Symbotex mesh was then chosen and inserted. This was secured to the abdominal wall using 2-0 V-Loc suture x2. The hernia was noted to be closed and the mesh in good position. The omentum that was transected was removed and sent off the field. Again hemostasis was noted. All needles were removed and accounted for. Pneumoperitoneum was deflated. All trocars were removed after the robotic instruments were removed and the robot undocked. Marcaine was injected at all incisions, 4-0 Biosyn was used to close all incisions. The patient tolerated the procedure well. The Valiente catheter was removed. She was transferred to recovery room in stable condition. ISAAK PINA M.D. [id number]
[2017-09-02] MEDS ORDERED: oxyCODONE HCL 5 MG TABLET ONE (17:43)
[2017-09-02 19:13] VITALS: BP 122/72; PULSE 62; TEMP 97.7
--- NOTE | 2017-09-05 17:25 | PATH ---
Surgical Pathology Report Patient Name: KERWIN CASTELAN [facility]. Rec. #: [id number] /Age/Gender: 1980 (Age: 36) / F Account: [id number] Location: [facility] SURGICAL Taken: 09/02/2017 Received: 09/03/2017 Reported: 09/05/2017 Physicians: Vini Pina M.D. Specimen(s) Received OMENTUM Clinical History Incisional hernia Final Diagnosis OMENTUM, EXCISION: MATURE ADIPOSE TISSUE, CONSISTENT WITH OMENTUM. Electronically Signed Camryn Alvarez M.D. Gross Description Received in formalin labeled "omentum," is a 5.0 x 3.5 x 1.1 cm aggregate of yellow, lobulated adipose tissue, consistent with a portion of omentum. Flat Polisher sections are submitted in one cassette. /09/03/2017 saudi/09/03/2017
== END 2017-09-02 19:00 | disposition home or self-care (01) ==
LOC: JASU-SURG 10:00
PROVIDERS: ATTEND Surgery
PROC: 8E0W4CZ Robotic Assisted Procedure of Trunk Region, Percutaneous Endoscopic Approach (ICD-10-PCS; 2017-09-02)
PROC: 0WUF4JZ Supplement Abdominal Wall with Synthetic Substitute, Percutaneous Endoscopic Approach (ICD-10-PCS; principal; 2017-09-02 12:00)
DX: K43.0 Incisional hernia with obstruction, without gangrene (principal)
CPT/HCPCS: 49655; S2900; J0131

== ENCOUNTER 2020-02-01 09:55 | Emergency (ER) | payer BC ==
[2020-02-01 10:01] VITALS: BMI 32.9
[2020-02-01] MEDS ORDERED: SODIUM CHLORIDE 1,000 ML IV STA (10:33)
[2020-02-01] MEDS ORDERED: FAMOTIDINE 20 MG/50 ML IVPB 20 MG/50 ML MG IVPB ONE ×2 (10:33→10:50)
[2020-02-01] MEDS ORDERED: ACETAMINOPHEN 1000 MG/100 ML VIAL (NON FORMULARY) IVPB ONE (10:33)
[2020-02-01] MEDS ORDERED: ONDANSETRON 4 MG/2 ML VIAL IVPUSH ONE (10:33)
[2020-02-01] MEDS ORDERED: ONDANSETRON 4 MG/2 ML VIAL ONE (10:36)
[2020-02-01] MEDS ORDERED: ACETAMINOPHEN INJECTION 100 ML IVPB ONE (10:36)
[2020-02-01 11:07] LABS: BASO % 0.8 % (0-2.0); EOS % 0.8 % (0-4.5); HEMATOCRIT 42.7 % (32.4-45.2); LYMPH % 17.1 % (8-40); MCH 29.2 pg (25.7-33.7); MCHC 32.7 g/dl (32.0-36.0); MEAN CELL VOLUME 89.2 fl (80-96); MEAN PLT VOLUME 10.2 fl (7.5-11.1); MONO % 4.6 % (3.8-10.2); NEUT % 76.7 % (42.8-82.8); PLATELET COUNT 242 K/MM3 (134-434); RBC 4.79 M/mm3 (3.60-5.2); RDW 13.3 % (11.6-15.6); WHITE BLOOD COUNT 9.6 K/mm3 (4.0-10.8)
[2020-02-01 11:09] LABS: ALBUMIN 3.9 g/dl (3.4-5.0); BILIRUBIN,TOTAL 0.7 mg/dl (0.2-1); CALCIUM 9.5 mg/dl (8.5-10); CREATININE 0.7 mg/dl (0.55-1.3); POTASSIUM 3.8 mmol/L (3.5-5.1); TOT PROT 6.9 g/dl (6.4-8.2)
[2020-02-01 12:18] LABS: EPITHELIAL CELLS MANY /hpf
[2020-02-01 15:16] VITALS: BP 115/69; PULSE 78; TEMP 97.7
== END 2020-02-01 15:35 | disposition home or self-care (01) ==
LOC: FER 09:55
PROC: 3E033NZ Introduction of Analgesics, Hypnotics, Sedatives into Peripheral Vein, Percutaneous Approach (ICD-10-PCS; principal; 2020-02-01)
PROC: 3E033GC Introduction of Other Therapeutic Substance into Peripheral Vein, Percutaneous Approach (ICD-10-PCS; 2020-02-01)
PROC: 3E0337Z Introduction of Electrolytic and Water Balance Substance into Peripheral Vein, Percutaneous Approach (ICD-10-PCS; 2020-02-01)
DX: N83.201 Unspecified ovarian cyst, right side (principal); R10.12 Left upper quadrant pain
CPT/HCPCS: 36415; 74177-TC; 80053; 81003; 81015; 83690; 85025; 87086; 99285-25; J0131

== ENCOUNTER 2021-06-01 18:34 | Emergency (ER) | payer BC ==
[2021-06-01 18:40] VITALS: BP 135/80; PULSE 98; TEMP 99; BMI 32.5
[2021-06-01] MEDS ORDERED: DIPHTH,PERTUSS(ACELL),TET VAC 0.5 ML VIAL IM ONE (18:50)
== END 2021-06-01 19:15 | disposition home or self-care (01) ==
LOC: FER 18:34
DX: S61.012A Laceration without foreign body of left thumb without damage to nail, initial encounter (principal); W26.8XXA Contact with other sharp object(s), not elsewhere classified, initial encounter
CPT/HCPCS: 99282-25

== ENCOUNTER 2023-06-17 15:44 | Emergency (ER) | payer BC ==
[2023-06-17 15:53] VITALS: BMI 34.7
[2023-06-17] MEDS: SODIUM CHLORIDE 0.9% 500 ML INFUS.BAG IV ONE (18:04)
[2023-06-17 18:08] LABS: BASO % 0.5 % (0-2.0); HEMATOCRIT 42.2 % (32.4-45.2); HEMOGLOBIN 14.1 GM/dL (10.7-15.3); LYMPH % 24.5 % (8-40); MCH 28.7 pg (25.7-33.7); MCHC 33.4 g/dl (32.0-36.0); MEAN CELL VOLUME 85.7 fl (80-96); MEAN PLT VOLUME 9.6 fl (7.5-11.1); PLATELET COUNT 259 10^3/uL (134-434); RBC 4.92 M/mm3 (3.60-5.2); RDW 14.3 % (11.6-15.6); WHITE BLOOD COUNT 10.9 K/mm3 (4.0-10.0)
[2023-06-17 19:15] LABS: POTASSIUM 4.1 mmol/L (3.5-5.1)
[2023-06-17 19:18] LABS: ALBUMIN 3.7 g/dl (3.4-5.0); BLOOD UREA NITROGEN 17.3 mg/dL (7-18)
[2023-06-17 19:21] LABS: CREATININE 0.8 mg/dL (0.55-1.3)
[2023-06-17 19:22] LABS: BILIRUBIN,TOTAL 0.6 mg/dL (0.2-1)
[2023-06-17 19:23] LABS: TOT PROT 7.1 g/dl (6.4-8.2)
[2023-06-17 19:26] LABS: N-TERMINAL BNP 26.7 pg/ml (5-125)
[2023-06-17 22:36] VITALS: BP 136/78; PULSE 72; RESP 19; TEMP 97.9
== END 2023-06-17 22:21 | disposition home or self-care (01) ==
LOC: JER 15:44
DX: R20.0 Anesthesia of skin (principal); R51.9 Headache, unspecified; R06.02 Shortness of breath; Z20.822 Contact with and (suspected) exposure to COVID-19
CPT/HCPCS: 0241U-QW; 36415; 71046-TC-FY; 71275-TC; 80053; 83690; 83880; 84484; 85025; 85379; 93005; 93010; 93970-TC; 99285-25; Q9967